=== PATIENT | female | born 1955 | race Two or more races ===

== ENCOUNTER 2020-08-11 12:01 | Emergency (ER) | payer MEDICAID, OTHER ==
[~2020-08-11] VITALS: Ht 152.4 cm; Wt 68.9 kg
[2020-08-11 12:11] VITALS: BP 153/74
== END 2020-08-11 13:35 | disposition home or self-care (01) ==
LOC: ER 12:01
DX: M25.811 Other specified joint disorders, right shoulder (principal)

== ENCOUNTER 2020-08-24 14:09 | Emergency (ER) | payer MEDICAID ==
[~2020-08-24] VITALS: Ht 149.9 cm; Wt 68.9 kg
[2020-08-24 14:29] VITALS: BP 135/84
== END 2020-08-24 17:34 | disposition home or self-care (01) ==
LOC: ER 14:09
DX: L02.413 Cutaneous abscess of right upper limb (principal)
CPT/HCPCS: 10060

== ENCOUNTER 2020-08-26 15:12 | Emergency (ER) | payer MEDICAID ==
[~2020-08-26] VITALS: Ht 149.9 cm; Wt 68.9 kg
[2020-08-26 15:28] VITALS: BP 143/66
== END 2020-08-26 17:52 | disposition home or self-care (01) ==
LOC: ER 15:12
DX: L02.212 Cutaneous abscess of back [any part, except buttock and flank] (principal); Z48.01 Encounter for change or removal of surgical wound dressing

== ENCOUNTER 2020-08-31 11:10 | Emergency (ER) | payer MEDICAID ==
[~2020-08-31] VITALS: Ht 134.6 cm; Wt 74.8 kg
[2020-08-31 14:24] VITALS: BP 150/76
== END 2020-08-31 14:49 | disposition home or self-care (01) ==
LOC: ER 11:10
DX: L02.413 Cutaneous abscess of right upper limb (principal); Z48.01 Encounter for change or removal of surgical wound dressing